=== PATIENT | male | born 1985 | race Caucasian/White ===

== ENCOUNTER 2020-11-02 22:38 | Emergency (ER) | payer SELFPAY ==
[~2020-11-02] VITALS: Ht 167.6 cm; Wt 87.0 kg
[2020-11-02 22:50] VITALS: BP 122/74
[2020-11-02] MEDS ORDERED: KETOROLAC 60MG/2ML VIAL IM STA (23:42)
== END 2020-11-03 01:13 | disposition home or self-care (01) ==
LOC: ER 22:38
DX: S63.592A Other specified sprain of left wrist, initial encounter (principal); S67.42XA Crushing injury of left wrist and hand, initial encounter; Y35.813A Legal intervention involving manhandling, suspect injured, initial encounter; Y93.89 Activity, other specified; Y92.89 Other specified places as the place of occurrence of the external cause
CPT/HCPCS: 29125; 73110; 99283; J1885